=== PATIENT | female | born 1975 ===

== ENCOUNTER 2025-03-06 12:14 | Emergency (ER) | payer OTHER, SELFPAY ==
[2025-03-06 12:20] VITALS: BP 120/87
[2025-03-06 13:07] LABS: COVID-19 Antigen Negative (Negative)
[2025-03-06 16:50] VITALS: BP 119/80
[2025-03-06 16:54] VITALS: BMI 25.4
--- NOTE | 2025-03-06 17:14 | ED.GENMED ---
History of Present Illness
General
Chief Complaint: Breathing Problem
Source: patient
Exam Limitations: none
Time Seen by Provider: 03/06/25 16:47
History of Present Illness
History of Present Illness:
49-year-old female started about 3 days ago with myalgias body aches fatigue lightheadedness some chest tightness and shortness of breath. No fever no cough no true pleuritic pain no abdominal pain or vomiting. Just feels off. Currently being
treated for breast CA with mets. Had radiation in December.
Past History
Past History
ED Past Medical History: Cancer, Psychiatric (anxiety, depression) and Other (IBS, migraine, congenital thrombocytopenia)
ED Past Surgical History: Gynecological (hysterectomy 2019) and Other (sinus surgery)
Social History
Tobacco: Non-smoker
Alcohol: None
Drug: None
Personal:
Living: with family
Family History
Family History: Other (thrombocytopenia)
Review of Systems
Review of Systems
All Other Systems: Not applicable
Constitutional: Denies fever
Cardiac: Denies syncope
: Reports no symptoms
Phy Exam
Physical Exam
Physical Exam:
GENERAL: Alert and oriented in no apparent distress. Nontoxic appearing alopecia.
EYE: Orbits normal.
NECK: Supple, no significant adenopathy.
ENT: Pharynx without erythema
CARDIAC: Regular rate and rhythm without any obvious murmurs. Port upper right chest wall
LUNGS: Clear breath sounds,normal
ABDOMEN: Soft, without focal tenderness or distention
NEUROLOGICAL: Alert and oriented , grossly non-focal
SKIN: Warm and dry, no rash or lesion, no discoloration, skin intact.
MUSCULOSKELETAL: No edema,no deformity.Good color
PSYCH: Normal and appropriate interaction.
Scores
Heart Failure Risk
Heart Failure Risk Score: Not Applicable
Course
Orders/Labs/Results
Orders:
Orders
03/06/25 12:14
Electrocardiogram (*1) Urgent
Reason for Study: Shortness of Breath
EKG- Treatment ONCE
03/06/25 12:25
COVID-19 Antigen Urgent
Source: Nasal Swab
Influenza A+B Rapid Molecular Urgent
[facility] Source: Nasal Swab
Specimen Description:
03/06/25 17:05
CT Chest PE Study Urgent
Comment:
Reason For Exam: Chest tightness short of breath/CVA history
Cardiac Monitoring- Treatment ONCE
IV Insert/Care/Rem.- Treatment PRN
0.9% Sodium Chloride 500 ml [Nss] 500 ml IV BOLUS
Pulse Ox/cont/shift [RESP] Stat
Quantity: 1
03/06/25 17:15
Complete Blood Count/With Diff Urgent
Comprehensive Metabolic Panel Urgent
Troponin I Urgent
03/06/25 19:38
Urinalysis Reflex To Culture Urgent
Date Specimen was Collected: 03/06/25
Time Specimen was Collected: 19:37
Abnormal Lab Results
03/06/25 03/06/25
17:15 19:38
Plt Count 102 L 10^3/uL
(130-400)
MPV 13.7 H fL
(7.4-10.4)
Absolute Monos (auto) 1.0 H 10^3/uL
(0.1-0.6)
Lymphocytes % 20.3 L %
(20.5-51.1)
Monocytes % 16.0 H %
(1.7-9.3)
Chloride 108 H mmol/L
(98-107)
Urine Ketones 2+ A
(Negative)
Urine Glucose 3+ A
(Negative)
03/06/25 17:15
03/06/25 17:15
Vital Signs
Initial and Last Documented VS:
Initial Vital Signs
Temp Pulse Resp BP Pulse Ox
98.1 F 95 18 120/87 97
03/06/25 12:20 03/06/25 12:20 03/06/25 12:20 03/06/25 12:20 03/06/25 12:20
Last Documented Vital Signs
Temp Pulse Resp BP Pulse Ox
98.4 F 94 25 101/77 96
03/06/25 16:58 03/06/25 18:15 03/06/25 18:15 03/06/25 18:00 03/06/25 19:45
MDM/Problems Addressed
Differential Diagnosis Includes:
Patient describing vague symptoms. Possibly viral. Would have to consider pulmonary emboli with shortness of breath. Doubt primary cardiac issue. Clinically not in heart failure no respiratory distress. Workup in progress
*Radiology
Radiology exam reviewed: radiology read reviewed (No acute findings on CT)
*Pulse Oximetry
Patient hypoxic: no
*EKG
Interpreted by ED Provider?: Yes
Interpretation: normal
Comparison EKG: no changes
Heart Rate: 94
Rate: normal
Rhythm: sinus
Mcloud: normal axis
Interval: normal interval
QRS Pattern: normal QRS
Ischemia: no ischemia
*Critical Care Note
Total Time (30-74mins, 75-104mins- exclusive of procedures): Not Applicable
Data Reviewed
Review of Other/Old Records Reveals: Labs, Records and Testing
Update Note
Update Note:
Patient clinically stable and nontoxic. Serious or explainable reason for her symptoms. No indication for admission at this time. Discussed with patient and her who are her neurologist. Copy of CT report given to patient. She will
follow-up closely as an outpatient
ED Attending Note
-
Portions of this chart may have been created with voice recognition software.� Occasional wrong word or��sound alike� substitutions may have occurred due to the inherent limitations of voice recognition software.
Discharge Plan
Departure
Patient Disposition: Home (Routine Discharge)
Date of Disposition: 03/06/25
Time of Disposition: 20:02
Patient with high blood pressure during this ER visit?: No
Discharge Problem:
Dyspnea/fatigue, History of breast CA
Instructions: Fatigue (DC), Shortness of Breath (Dyspnea) (DC)
Prescriptions:
No Action
hydrocodone-acetaminophen 5-325 mg tablet
1 tab PO Q6H PRN (Reason: pain) Qty: 14 0RF
Referrals:
UNKNOWN - PT DOES,NOT KNOW [Family Provider] -
Activity Restrictions/Additional Instructions:
Call your specialist for close follow-up
Return with any progression of symptoms, increasing shortness of breath chest pain fever etc.
Interventions
Interventions:
*Risk Screen - Suicide Last Done: 03/06/25 12:20
*General Assessment Last Done: 03/06/25 12:20
*Neglect/Abuse Screening Last Done: 03/06/25 16:55
*ED- Fall Risk Assessment Last Done: 03/06/25 16:55
*ED COVID-19 Vaccine History Last Done: 03/06/25 16:55
ED- Cardiac Assessment Last Done: 03/06/25 16:53
ED- Pulmonary Assessment Last Done: 03/06/25 16:57
Discharge Date and Time
Print Language: GERMAN
[2025-03-06] MEDS: NSS 500 IV (17:17)
[2025-03-06 17:45] LABS: AST (SGOT) 23 U/L (14-36); Albumin 3.9 g/dl (3.5-5.0); Blood Urea Nitrogen 10 mg/dl (7-17); Carbon Dioxide 23 mmol/L (22-30); Chloride 108 mmol/L (98-107); Estimated Creatinine Clearance 83 ml/min; Total Bilirubin 0.6 mg/dl (0.2-1.3); Total Protein 6.5 g/dl (6.3-8.2); eGFR > 60.00
[2025-03-06 17:47] LABS: Troponin I < 0.012 ng/ml
[2025-03-06 17:49] LABS: % Basophils 0.8 % (0-2); % Eosinophils 2.5 % (0-6); % Immature Granulocytes 0.2 % (0-0.5); % Lymphocytes 20.3 % (20.5-51.1); % Neutrophils 60.2 % (42.2-75.2); Absolute Basophils 0.1 10^3/uL (0-0.2); Absolute Eosinophils 0.2 10^3/uL (0-0.7); Absolute Lymphocytes 1.2 10^3/uL (1.2-3.4); Absolute Neutrophils 3.6 10^3/uL (1.4-6.5); Hemoglobin 14.4 g/dL (12.0-16.0); Mean Corp Hgb Conc. 35.1 g/dL (33.0-37.0); Mean Corpuscular Hgb 30.1 pg (27.0-31.0); Mean Corpuscular Volume 85.8 fL (81.0-99.0); Mean Platelet Volume 13.7 fL (7.4-10.4); Nucleated Red Blood Cells % 0 %; Platelet Count 102 10^3/uL (130-400); Red Blood Cell Count 4.78 10^6/uL (4.20-5.40); Red Cell Dist. Width 13.4 % (11.5-14.5)
[2025-03-06 18:00] VITALS: BP 101/77
[2025-03-06 18:05] LABS: ALT (SGPT) 24 U/L (0-35); Alkaline Phosphatase 50 U/L (38-126); Calcium 9.1 mg/dl (8.4-10.2); Glucose 99 mg/dl (70-99); Potassium 3.9 mmol/L (3.5-5.1); Sodium 136 mmol/L (135-145)
[2025-03-06 19:51] LABS: Urine Albumin Negative (Neg - Trace); Urine Bilirubin Negative (Negative); Urine Character Clear (Clear); Urine Color Straw; Urine Glucose 3+ (Negative); Urine Ketone 2+ (Negative); Urine Leukocyte Negative (Negative); Urine Nitrite Negative (Negative); Urine Occult Blood Negative (Negative); Urine Urobilinogen Negative (Neg - 1+)
== END 2025-03-06 20:18 | disposition home or self-care (01) ==
LOC: EMR 12:14
PROVIDERS: Emergency Medicine; EMERGENCY PHYSICIAN Emergency Medicine
DX: R06.00 Dyspnea, unspecified (principal); Z85.3 Personal history of malignant neoplasm of breast; C50.919 Malignant neoplasm of unspecified site of unspecified female breast; C78.00 Secondary malignant neoplasm of unspecified lung; F41.8 Other specified anxiety disorders; K58.9 Irritable bowel syndrome, unspecified; R53.83 Other fatigue; Z01.810 Encounter for preprocedural cardiovascular examination; Z86.73 Personal history of transient ischemic attack (TIA), and cerebral infarction without residual deficits; Z90.710 Acquired absence of both cervix and uterus
CPT/HCPCS: 99284; 71275; 80053; 81003; 84484; 85025; 87502; 87811; 93005; Q9967